=== PATIENT | male | born 1995 | race Two or more races ===

== ENCOUNTER 2019-05-21 10:50 | Emergency (ER) | payer BC ==
[~2019-05-21] VITALS: Ht 165.1 cm; Wt 72.2 kg
--- NOTE | 2019-05-21 11:14 | NUR ---
Note ian in EDM - 05/21/19 at 1116 by EVAN FIRST CONTACT WITH PT. PT STATES "AT [facility] I PEED BLOOD TWICE. I'M NOT ANYMORE BUT MY BACK IS SORE." PT DENIES ABD PAIN/N/V/HEMATOURIA/DYSURIA AT THIS TIME. PT'S AOX4. RESPS EVEN AND UNLABORED. BP/SPO2 MONITORS IN PLACE. CALL LIGHT WITHIN REACH.
--- NOTE | 2019-05-21 11:16 | NUR ---
FIRST CONTACT WITH PT. PT STATES "[facility] I PEED BLOOD TWICE. I'M NOT ANYMORE BUT MY BACK IS SORE." PT DENIES ABD PAIN/N/V/HEMATURIA/DYSURIA AT THIS TIME. PT'S AOX4. RESPS EVEN AND UNLABORED. BP/SPO2 MONITORS IN PLACE. CALL LIGHT WITHIN REACH.
--- NOTE | 2019-05-21 11:26 | NUR ---
PT AWARES OF UA.
--- NOTE | 2019-05-21 11:36 | NUR ---
PT AMB TO BR WITH STEADY GAIT FOR UA.
--- NOTE | 2019-05-21 11:44 | NUR ---
PT BACK TO ROOM FROM WITH STEADY GAIT. UA SENT.
[2019-05-21 11:59] LABS: BASOPHILS # (AUTO) 0.02 x10^3/uL (0-0.1); BASOPHILS % (AUTO) 0 % (0-1); EOSINOPHILS # (AUTO) 0.12 x10^3/uL (0-0.4); EOSINOPHILS % (AUTO) 1 % (1-7); LYMPHOCYTES # (AUTO) 2.05 x10^3/uL (1-3.4); LYMPHOCYTES % (AUTO) 22 % (22-44); MD NO; MEAN CORPUSCULAR HEMOGLOBIN 32.7 pg (27.5-34.5); MEAN CORPUSCULAR HGB CONC 33.5 g/dL (33.2-36.2); MEAN CORPUSCULAR VOLUME 97.7 fL (81-97); MEAN PLATELET VOLUME 8.4 fL (7.4-10.4); MONOCYTES # (AUTO) 0.61 x10^3/uL (0.2-0.8); MONOCYTES % (AUTO) 6 % (2-9); NEUTROPHILS # (AUTO) 6.73 x10^3/uL (1.8-6.8); NEUTROPHILS % (AUTO) 71 % (42-75); PLATELET COUNT 363 x10^3/uL (130-400); RED BLOOD COUNT 5.05 x10^6/uL (4.38-5.82); RED CELL DISTRIBUTION WIDTH 12.2 % (9.4-14.8)
[2019-05-21 12:10] LABS: ANION GAP 8 mmol/L (5-15); CALCIUM 9.1 mg/dL (8.5-10.1); CHLORIDE 103 mmol/L (98-107); CREATININE 0.88 mg/dL (0.7-1.3)
--- NOTE | 2019-05-21 12:26 | NUR ---
PT AMB TO BR WITH STEADY GAIT.
[2019-05-21 12:30] LABS: MICROSCOPIC AUTO
[2019-05-21 12:33] LABS: CULTURE INDICATED? YES
[2019-05-21 13:07] VITALS: BP 112/79
--- NOTE | 2019-05-21 13:29 | NUR ---
Patient given discharge instructions and they have confirmed that they understand the instructions. Patient ambulatory with steady gait.
== END 2019-05-21 13:30 | disposition home or self-care (01) ==
LOC: ED 13:25
DX: N30.00 Acute cystitis without hematuria (principal); F17.200 Nicotine dependence, unspecified, uncomplicated
CPT/HCPCS: 36415; 80048; 81001; 85025; 87077; 87086; 87186; 99283